=== PATIENT | female | born 1980 | race Caucasian/White ===

== ENCOUNTER 2016-06-22 23:59 | Emergency (ER) | payer OTHER, MEDICAID ==
[~2016-06-22] VITALS: Ht 170.2 cm; Wt 89.0 kg
[~2016-06-22 23:59] MED LIST: AMBI10TA PO; HYDR-3366 PO; HYDR-3533 PO; LIPI40TA PO; LISI40TA PO; OMEP40CA2 PO; TOPA25TA8 PO; XANA1TAB2 PO; ZOLO25TA PO
[2016-06-23 00:02] VITALS: BP 139/88; PULSE 105; RESP 16; TEMP 98; O2SAT 98
[2016-06-23] MEDS ORDERED: ZANT150T2 PO (00:21)
[2016-06-23] MEDS ORDERED: SODIUM CHLOR 0.9% 1000 ML INJ 1,000 ML IV SCH (01:05)
[2016-06-23] MEDS ORDERED: MORPHINE SULFATE 8 MG/ML INJ IV PUSH ONE (01:15)
[2016-06-23] MEDS ORDERED: SODIUM CHLORIDE 0.9% FLUSH 5 ML FLUSH IVF PRN (01:15)
[2016-06-23 01:39] LABS: BACTERIA, URINE RARE /hpf; BLOOD, URINE MOD (NEG); COMMENT (UR) CULTURE INDICATED; CULTURE IF INDICATED CULTURE INDICATED; GLUCOSE,URINE NEG (NEG); KETONE, URINE NEG (NEG); NITRITE,URINE NEG (NEG); PH, URINE 5.5 (5.0-8.5); SQUAMOUS EPITHELIAL CELL URINE 1 /hpf (0-5); URINE COLOR LIGHT-YELLOW (YELLW/STRAW)
[2016-06-23 01:45] LABS: AUTOMATED NEUTROPHIL # 13.6 TH/MM3 (1.8-7.7); BASOPHIL % 0.1 % (0.0-2.0); EOSINOPHIL # 0.1 TH/MM3 (0-0.4); EOSINOPHIL % 0.6 % (0.0-4.0); HEMATOCRIT 39.4 % (35.0-46.0); HEMO FLAGS DIFF FINAL; LYMPH % 19.8 % (9.0-44.0); LYMPHOCYTE # 3.6 TH/MM3 (1.0-4.8); MEAN CELL VOLUME 86.7 FL (80.0-100.0); MEAN CORPUSCULAR HEMOGLOBIN 29.6 PG (27.0-34.0); MEAN CORPUSCULAR HGB CONC 34.2 % (32.0-36.0); MONO % 5.1 % (0.0-8.0); NEUT % 74.4 % (16.0-70.0); PLATELET COUNT 246 TH/MM3 (150-450); RED BLOOD COUNT 4.54 MIL/MM3 (4.00-5.30); RED CELL DISTRIBUTION WIDTH 13.2 % (11.6-17.2); WHITE BLOOD COUNT 18.2 TH/MM3 (4.0-11.0)
[2016-06-23] MEDS ORDERED: MACR100C2 PO (01:55)
--- NOTE | 2016-06-23 01:56 | PD ---
HPI Chief Complaint: Flank/Kidney Pain Time Seen by Provider: 00:56 Travel History International Travel<30 days: No Contact w/Intl Traveler<30days: No Traveled to known affect area: No History of Present Illness HPI 35-year-old female arrives to the ER complaining of dysuria and suprapubic abdominal pain for the day. Onset gradual. Severity moderate. She reports diaphoresis however denies fever. She was vomiting earlier. Pain is worse with palpation. No vaginal bleeding or discharge. Last menstruation was 8 months prior. PFSH Past Medical History Anxiety: Yes Heart Rhythm Problems: No Cancer: Yes (CERVICAL ) High Cholesterol: Yes Congestive Heart Failure: No Cerebrovascular Accident: Yes Diabetes: No Diminished Hearing: No GERD: Yes Hypertension: Yes Kidney Stones: Yes (presently ) Medical other: Yes (displaced buckle handle right lateral meniscus tear, sx on 07/19/15) Psychiatric: Yes Immunizations Current: Yes Sickle Cell Disease: No Sleep Apnea: No Thyroid Disease: No Tetanus Vaccination: > 5 Years Influenza Vaccination: No ?: Not : 3 Para: 3 Miscarriage: 0 : 0 Tubal Ligation: Yes Past Surgical History AICD: No Arteriovenous Shunt: No Section: Yes (1x) Insulin Pump: No Joint Replacement: No Pacemaker: No Other Surgery: Yes ( AND TUBAL LIGATION IN 2001) Social History Alcohol Use: Yes (rare) Tobacco Use: Yes (1 PPD) Substance Use: No Allergies-Medications (Allergen,Severity, Reaction): Coded Allergies: Penicillin (Verified Allergy, Severe, HIVES, 06/23/16) Avelox (Verified Allergy, Mild, Hives, 06/23/16) Levaquin (Verified Allergy, Mild, Nausea/Vomiting, 06/23/16) Sumatriptan (Unverified Allergy, Mild, 06/23/16) Reported Meds & Prescriptions Reported Meds & Active Scripts Active Macrobid (Nitrofurantoin Monoh/Nitrofur Macro) 100 Mg Cap 100 Mg PO BID 5 Days Lortab (Hydrocodone-Acetaminophen) 5-325 Mg Tab 1 Tab PO Q6H PRN Reported Zantac (Ranitidine HCl) 150 Mg Tab 150 Mg PO HS Xanax (Alprazolam) 1 Mg Tab 1.5 Mg PO HS PRN Ambien (Zolpidem Tartrate) 10 Mg Tab 10 Mg PO HS PRN Topamax (Topiramate) 25 Mg Tab 75 Mg PO DAILY Lipitor (Atorvastatin Calcium) 40 Mg Tab 40 Mg PO DAILY Omeprazole 40 Mg Cap 40 Mg PO DAILY Lisinopril 40 Mg Tab 40 Mg PO DAILY Review of Systems Except as stated in HPI: all other systems reviewed are Neg Physical Exam Narrative GENERAL: 35-year-old female pleasant well-nourished well-developed acute distress SKIN: Warm and dry. HEAD: Atraumatic. Normocephalic. EYES: Pupils equal and round. No scleral icterus. No injection or drainage. ENT: No nasal bleeding or discharge. Mucous membranes pink and moist. NECK: Trachea midline. No JVD. CARDIOVASCULAR: Regular rate and rhythm. No murmur appreciated. RESPIRATORY: No accessory muscle use. Clear to auscultation. Breath sounds equal bilaterally. GASTROINTESTINAL: Soft. Tenderness to palpation. MUSCULOSKELETAL: No obvious deformities. No clubbing. No cyanosis. No edema. NEUROLOGICAL: Awake and alert. No obvious cranial nerve deficits. Motor grossly within normal limits. Normal speech. PSYCHIATRIC: Appropriate mood and affect; insight and judgment normal. Data Data Last Documented VS Vital Signs Date Time Temp Pulse Resp B/P Pulse Ox O2 Delivery O2 Flow Rate FiO2 06/23/16 00:02 98.0 105 16 139/88 98 Room Air VS reviewed Orders Complete Blood Count With Diff (06/23/16 01:05) Comprehensive Metabolic Panel (06/23/16 01:05) Urinalysis - C+S If Indicated (06/23/16 01:05) Iv Access Insert/Monitor (06/23/16 01:05) Ecg Monitoring (06/23/16 01:05) Oximetry (06/23/16 01:05) Sodium Chlor 0.9% 1000 Ml Inj (Ns 1000 M (06/23/16 01:05) Sodium Chloride 0.9% Flush (Ns Flush) (06/23/16 01:15) Morphine Inj (Morphine Inj) (06/23/16 01:15) Ed Urine Pregnancytest Poc (06/23/16 01:05) Urine Culture (06/23/16 01:09) Ceftriaxone Inj (Rocephin Inj) (06/23/16 02:00) Labs Laboratory Tests Test 06/23/16 01:09 White Blood Count 18.2 TH/MM3 Red Blood Count 4.54 MIL/MM3 Hemoglobin 13.5 GM/DL Hematocrit 39.4 % Mean Corpuscular Volume 86.7 FL Mean Corpuscular Hemoglobin 29.6 PG Mean Corpuscular Hemoglobin 34.2 % Concent Red Cell Distribution Width 13.2 % Platelet Count 246 TH/MM3 Mean Platelet Volume 8.1 FL Neutrophils (%) (Auto) 74.4 % Lymphocytes (%) (Auto) 19.8 % Monocytes (%) (Auto) 5.1 % Eosinophils (%) (Auto) 0.6 % Basophils (%) (Auto) 0.1 % Neutrophils # (Auto) 13.6 TH/MM3 Lymphocytes # (Auto) 3.6 TH/MM3 Monocytes # (Auto) 0.9 TH/MM3 Eosinophils # (Auto) 0.1 TH/MM3 Basophils # (Auto) 0.0 TH/MM3 CBC Comment DIFF FINAL Differential Comment Urine Color LIGHT-YELLOW Urine Turbidity HAZY Urine pH 5.5 Urine Specific Chancellor 1.004 Urine Protein NEG mg/dL Urine Glucose (UA) NEG mg/dL Urine Ketones NEG mg/dL Urine Occult Blood MOD Urine Nitrite NEG Urine Bilirubin NEG Urine Urobilinogen LESS THAN 2.0 MG/DL Urine Leukocyte Esterase LARGE Urine RBC 3 /hpf Urine WBC 43 /hpf Urine WBC Clumps FEW Urine Squamous Epithelial 1 /hpf Cells Urine Bacteria RARE /hpf Microscopic Urinalysis Comment CULTURE INDICATED Sodium Level 139 MEQ/L Potassium Level 3.8 MEQ/L Chloride Level 107 MEQ/L Carbon Dioxide Level 24.5 MEQ/L Anion Gap 8 MEQ/L Blood Urea Nitrogen 13 MG/DL Creatinine 0.87 MG/DL Estimat Glomerular Filtration 73 ML/MIN Rate Random Glucose 85 MG/DL Calcium Level 8.7 MG/DL Total Bilirubin 0.6 MG/DL Aspartate Amino Transf 12 U/L (AST/SGOT) Alanine Aminotransferase 22 U/L (ALT/SGPT) Alkaline Phosphatase 102 U/L Total Protein 7.0 GM/DL Albumin 3.8 GM/DL [facility] Medical Decision Making Medical Screen Exam Complete: Yes Emergency Medical Condition: Yes Medical Record Reviewed: Yes Differential Diagnosis Constipation, Gastritis, Acute Cholecystitis, Biliary Colic, Pancreatitis, MCQUEEN , Hepatitis, Bowel Obstruction, Cystitis, Mesenteric Ischemia, AAA, Appendicitis , Renal Stone/Hydronephrosis, GERD, perforated viscous Narrative Course Urinalysis reveals a urinary tract infection CBC & BMP Diagram 06/23/16 01:09 LFTs normal Assessment at 2:40 AM the Patient Is Feeling Much Better. She Has a Urinary Tract Infection. Rocephin Given Here. Macrobid Prescription for Home. Return Precautions Discussed. Follow-Up with PMD in 2 Days Diagnosis Primary Impression: Cystitis Referrals: Primary Care Physician 2 days Additional Instructions: You have a choice when it comes to health care, and we are glad that you chose [facility]. Hopefully, we have met your expectations on today's visit. You are welcome to return to [facility] at any time, as we are committed to meeting the health care needs of our community. Med/Other Pt SpecificInfo: Prescription(s) given Scripts Nitrofurantoin Monohydrate Macrocrystals (Macrobid)100 Mg Feq090 Mg PO BID 5 Days Ref 0 Prov:Jerzy Martinez MD 06/23/16 Disposition: 01 DISCHARGE HOME Condition: Stable Jerzy Martinez MD Jun 23, 2016 01:56
[2016-06-23 01:58] LABS: ANION GAP 8 MEQ/L (5-15); AST (GOT) 12 U/L (15-37); BICARBONATE 24.5 MEQ/L (21.0-32.0); BLOOD UREA NITROGEN 13 MG/DL (7-18); CHLORIDE 107 MEQ/L (98-107); GLOMERULAR FILTRATION RATE 73 ML/MIN (>89); POTASSIUM 3.8 MEQ/L (3.5-5.1); SODIUM (NA) 139 MEQ/L (136-145)
[2016-06-23 02:00] LABS: ALKALINE PHOSPHATASE 102 U/L (45-117); ALT (GPT) 22 U/L (10-53); TOTAL BILIRUBIN ADULT 0.6 MG/DL (0.2-1.0)
[2016-06-23] MEDS ORDERED: cefTRIAXone INJ 1,000 MG in SODIUM CHLORIDE 0.9% INJ 100 ML IV ONE (02:00)
[2016-06-23 03:14] VITALS: BP 103/60; PULSE 80; RESP 16; O2SAT 99
== END 2016-06-23 03:16 | disposition home or self-care (01) ==
LOC: NEPE 23:59
DX: N30.90 Cystitis, unspecified without hematuria (principal); F41.9 Anxiety disorder, unspecified; E78.00 Pure hypercholesterolemia, unspecified; Z86.73 Personal history of transient ischemic attack (TIA), and cerebral infarction without residual deficits; I10 Essential (primary) hypertension; Z87.442 Personal history of urinary calculi; F17.210 Nicotine dependence, cigarettes, uncomplicated; B96.20 Unspecified Escherichia coli [E. coli] as the cause of diseases classified elsewhere
CPT/HCPCS: 80053; 81001; 84703; 85025; 87077; 87086; 87186; 96361; 96365; 96375; 99284; J0696; J2270; J7030

== ENCOUNTER 2016-11-25 20:42 | Emergency (ER) | payer OTHER, MEDICAID ==
[~2016-11-25] VITALS: Ht 170.2 cm; Wt 88.0 kg
[~2016-11-25 20:42] MED LIST changes: -HYDR-3366 PO; +MACR100C2 PO; +ZANT150T2 PO; -ZOLO25TA PO
[2016-11-25 20:59] VITALS: BP 137/93; PULSE 77; RESP 20; TEMP 98.3; O2SAT 98
[2016-11-25] MEDS ORDERED: RESP: ALBUTEROL 2.5 MG/IPRATROPIUM 0.5 MG NEB (SCH) INH ONE (21:30)
[2016-11-25] MEDS ORDERED: SODIUM CHLORIDE 0.9% FLUSH 10 ML FLUSH IVF PRN (21:30)
--- NOTE | 2016-11-25 21:34 | PD ---
HPI Chief Complaint: Respiratory Symptoms Time Seen by Provider: 21:22 Travel History International Travel<30 days: No Contact w/Intl Traveler<30days: No Traveled to known affect area: No History of Present Illness HPI 36-year-old female here for evaluation of shortness of breath. The patient reports having shortness of breath for the last 3 days. She states it feels as though it is difficult for her to take a deep breath. She is denying any chest pain. She denies fevers or chills. No cough or hemoptysis. She works as a baggage and mail agent. She had orthopedic surgery of her right knee in July of this year for meniscal tear. She denies history of DVT or PE. No known history of CAD. She smokes between half a pack and a pack of cigarettes daily and has been doing so since she was 10 years old. PFSH Past Medical History Anxiety: Yes Heart Rhythm Problems: No Cancer: Yes (CERVICAL ) High Cholesterol: Yes Congestive Heart Failure: No Cerebrovascular Accident: Yes Diabetes: No Diminished Hearing: No GERD: Yes Hypertension: Yes Kidney Stones: Yes (presently ) Psychiatric: Yes Immunizations Current: Yes Sickle Cell Disease: No Sleep Apnea: No Thyroid Disease: No ?: Not : 3 Para: 3 Miscarriage: 0 : 0 Tubal Ligation: Yes Past Surgical History AICD: No Arteriovenous Shunt: No Section: Yes (1x) Insulin Pump: No Joint Replacement: No Pacemaker: No Other Surgery: Yes ( AND TUBAL LIGATION IN 2001) Social History Alcohol Use: Yes (rare) Tobacco Use: Yes (1 PPD) Substance Use: No Allergies-Medications (Allergen,Severity, Reaction): Coded Allergies: Penicillin (Verified Allergy, Severe, HIVES, 11/25/16) Avelox (Verified Allergy, Mild, Hives, 11/25/16) Levaquin (Verified Allergy, Mild, Nausea/Vomiting, 11/25/16) Sumatriptan (Unverified Allergy, Mild, 11/25/16) Reported Meds & Prescriptions Reported Meds & Active Scripts Active Reported Aspirin Low Dose (Aspirin) 81 Mg Chew 81 Mg CHEW DAILY Cetirizine (Cetirizine HCl) 10 Mg Tab 10 Mg PO DAILY Zantac (Ranitidine HCl) 150 Mg Tab 150 Mg PO HS Xanax (Alprazolam) 1 Mg Tab 1.5 Mg PO HS PRN Ambien (Zolpidem Tartrate) 10 Mg Tab 10 Mg PO HS PRN Topamax (Topiramate) 25 Mg Tab 75 Mg PO DAILY Lipitor (Atorvastatin Calcium) 40 Mg Tab 40 Mg PO DAILY Omeprazole 40 Mg Cap 40 Mg PO DAILY Review of Systems Except as stated in HPI: all other systems reviewed are Neg Physical Exam Narrative GENERAL: Well-developed, well-nourished, no apparent distress. SKIN: Focused skin assessment warm/dry. HEAD: Atraumatic. Normocephalic. EYES: Pupils equal and round. No scleral icterus. No injection or drainage. ENT: Mucous membranes pink and moist. NECK: Trachea midline. No JVD. CARDIOVASCULAR: Regular rate and rhythm. RESPIRATORY: No accessory muscle use. Clear to auscultation. Breath sounds equal bilaterally. Speaking full sentences. Occasionally takes a deep breath. No wheezes, rales, or rhonchi. GASTROINTESTINAL: Abdomen soft, non-tender, nondistended. Hepatic and splenic margins not palpable. MUSCULOSKELETAL: No obvious deformities. No clubbing. No cyanosis. No edema. Bilateral calves are supple, nontender. NEUROLOGICAL: Awake and alert. No obvious cranial nerve deficits. Motor grossly within normal limits. Normal speech. PSYCHIATRIC: Appropriate mood and affect; insight and judgment normal. Data Data Last Documented VS Vital Signs Date Time Temp Pulse Resp B/P Pulse Ox O2 Delivery O2 Flow Rate FiO2 11/25/16 22:26 80 20 133/84 98 Room Air 11/25/16 20:59 98.3 Orders Complete Blood Count With Diff (11/25/16 21:28) Comprehensive Metabolic Panel (11/25/16 21:28) B-Type Natriuretic Peptide (11/25/16 21:28) Act Partial Throm Time (Ptt) (11/25/16 21:28) Prothrombin Time / Inr (Pt) (11/25/16 21:28) Ckmb (Isoenzyme) Profile (11/25/16 21:28) Troponin I (11/25/16 21:28) Iv Access Insert/Monitor (11/25/16 21:28) Electrocardiogram (11/25/16 21:28) Ecg Monitoring (11/25/16 21:28) Oximetry (11/25/16 21:28) Oxygen Administration (11/25/16 21:28) Chest, Single Ap (11/25/16 21:28) Ct Pulmonary Angiogram (11/25/16 21:28) Sodium Chloride 0.9% Flush (Ns Flush) (11/25/16 21:30) Albuterol-Ipratropium Neb (Duoneb Neb) (11/25/16 21:30) Beta Hcg (Quant/Titer) (11/25/16 21:28) Iohexol 350 Inj (Omnipaque 350 Inj) (11/25/16 22:28) Labs Laboratory Tests Test 11/25/16 21:30 White Blood Count 8.8 TH/MM3 Red Blood Count 4.75 MIL/MM3 Hemoglobin 14.0 GM/DL Hematocrit 41.5 % Mean Corpuscular Volume 87.4 FL Mean Corpuscular Hemoglobin 29.4 PG Mean Corpuscular Hemoglobin 33.7 % Concent Red Cell Distribution Width 12.0 % Platelet Count 253 TH/MM3 Mean Platelet Volume 8.2 FL Neutrophils (%) (Auto) 57.4 % Lymphocytes (%) (Auto) 33.4 % Monocytes (%) (Auto) 8.0 % Eosinophils (%) (Auto) 0.6 % Basophils (%) (Auto) 0.6 % Neutrophils # (Auto) 5.0 TH/MM3 Lymphocytes # (Auto) 2.9 TH/MM3 Monocytes # (Auto) 0.7 TH/MM3 Eosinophils # (Auto) 0.1 TH/MM3 Basophils # (Auto) 0.1 TH/MM3 CBC Comment DIFF FINAL Differential Comment Prothrombin Time 10.1 SEC Prothromb Time International 0.9 RATIO Ratio Activated Partial 24.4 SEC Thromboplast Time Sodium Level 142 MEQ/L Potassium Level 3.4 MEQ/L Chloride Level 111 MEQ/L Carbon Dioxide Level 20.5 MEQ/L Anion Gap 11 MEQ/L Blood Urea Nitrogen 20 MG/DL Creatinine 0.86 MG/DL Estimat Glomerular Filtration 74 ML/MIN Rate Random Glucose 104 MG/DL Calcium Level 8.8 MG/DL Total Bilirubin 0.9 MG/DL Aspartate Amino Transf 47 U/L (AST/SGOT) Alanine Aminotransferase 90 U/L (ALT/SGPT) Alkaline Phosphatase 89 U/L Total Creatine Kinase 62 U/L Troponin I LESS THAN 0.02 NG/ML B-Type Natriuretic Peptide 6 PG/ML Total Protein 7.3 GM/DL Albumin 4.0 GM/DL Human Chorionic Gonadotropin, LESS THAN 1 Quant MIU/ML MDM Medical Decision Making Medical Screen Exam Complete: Yes Emergency Medical Condition: Yes Interpretation(s) EKG: Sinus, rate 72, normal axis, normal intervals, no acute ischemic abnormality. Differential Diagnosis ACS, pneumothorax, PE, pneumonia, bronchitis, anxiety Narrative Course Vital signs show heart rate 77, blood pressure 137/93, pulse ox 98% on room air , oral temp of 98.3F. CBC is unremarkable. CMP is remarkable for potassium 3.4, bicarbonate 20.5, AST 47, ALT 90, otherwise essentially unremarkable. BNP is 6. Cardiac enzymes are negative. Beta hCG is negative. Chest x-ray: No acute disease. CT pulmonary angiogram: Negative exam with no evidence of pulmonary embolism. Patient made aware of all findings including slight elevation in LFTs. She is on Topamax and Lipitor. She denies alcohol abuse as well as excessive Tylenol use. Otherwise patient is resting comfortably. She is in no acute distress. Her O2 saturation is 99% on room air. Lung sounds are clear and equal bilaterally. Patient describes sensation of not being able to take a deep breath. Again she has no chest pain. EKG shows no signs of ischemia. Cardiac enzymes are negative. At this point I believe the patient is stable for discharge home with outpatient follow-up with her primary care physician this week. She was counseled on smoking cessation. She was informed on when to return to the emergency department. She verbalizes understanding and agreement with plan. Diagnosis Primary Impression: Dyspnea Qualified Code: R06.00 - Dyspnea, unspecified type Additional Impression: Elevated liver enzymes Referrals: Primary Care Physician 3 days Additional Instructions: Follow-up with your primary care physician this week. Return to the emergency department for worsening symptoms or any other concerns. Disposition: 01 DISCHARGE HOME Condition: Stable Eddi David MD Nov 25, 2016 21:34
[2016-11-25 21:40] LABS: BASOPHIL # 0.1 TH/MM3 (0-0.2); BASOPHIL % 0.6 % (0.0-2.0); EOSINOPHIL # 0.1 TH/MM3 (0-0.4); EOSINOPHIL % 0.6 % (0.0-4.0); HEMATOCRIT 41.5 % (35.0-46.0); HEMO FLAGS DIFF FINAL; LYMPH % 33.4 % (9.0-44.0); LYMPHOCYTE # 2.9 TH/MM3 (1.0-4.8); MEAN CELL VOLUME 87.4 FL (80.0-100.0); MEAN CORPUSCULAR HEMOGLOBIN 29.4 PG (27.0-34.0); MEAN CORPUSCULAR HGB CONC 33.7 % (32.0-36.0); NEUT % 57.4 % (16.0-70.0); PLATELET COUNT 253 TH/MM3 (150-450); RED BLOOD COUNT 4.75 MIL/MM3 (4.00-5.30); WHITE BLOOD COUNT 8.8 TH/MM3 (4.0-11.0)
[2016-11-25] MEDS ORDERED: CETI10 PO (21:43)
[2016-11-25] MEDS ORDERED: ASPI81CH37 CHEW (21:43)
[2016-11-25 21:50] VITALS: O2SAT 98
[2016-11-25 21:52] LABS: CHLORIDE 111 MEQ/L (98-107); POTASSIUM 3.4 MEQ/L (3.5-5.1); SODIUM (NA) 142 MEQ/L (136-145)
[2016-11-25 21:57] LABS: ANION GAP 11 MEQ/L (5-15); APTT (PATIENT) 24.4 SEC (24.3-30.1); BICARBONATE 20.5 MEQ/L (21.0-32.0); INTERNATIONAL NORMALIZED RATIO 0.9 RATIO; PROTHROMBIN TIME - PATIENT 10.1 SEC (9.8-11.6)
[2016-11-25 21:58] LABS: BLOOD UREA NITROGEN 20 MG/DL (7-18)
[2016-11-25 22:00] LABS: ALT (GPT) 90 U/L (10-53)
[2016-11-25 22:01] LABS: AST (GOT) 47 U/L (15-37); GLOMERULAR FILTRATION RATE 74 ML/MIN (>89)
[2016-11-25 22:02] LABS: TOTAL BILIRUBIN ADULT 0.9 MG/DL (0.2-1.0)
[2016-11-25 22:03] LABS: ALKALINE PHOSPHATASE 89 U/L (45-117)
[2016-11-25 22:05] LABS: BETA HCG QUANT LESS THAN 1 MIU/ML (0-5)
[2016-11-25 22:06] LABS: CREATINE KINASE 62 U/L (26-192)
--- NOTE | 2016-11-25 22:21 | RADRPT ---
EXAM DATE/TIME: 11/25/2016 22:01 [facility] COMPARISON: No previous studies available for comparison. INDICATIONS : Shortness of breath. MEDICAL HISTORY : None. SURGICAL HISTORY : None. ENCOUNTER: Initial ACUITY: 1 day PAIN SCORE: 0/10 LOCATION: Bilateral chest FINDINGS: A single view of the chest demonstrates the lungs to be symmetrically aerated without evidence of mas s, infiltrate or effusion. The cardiomediastinal contours are unremarkable. Osseous structures are intact. CONCLUSION: No acute disease. Anibal Evangelista MD on November 25, 2016 at 22:19 Board Certified Radiologist. This report was verified electronically.
[2016-11-25 22:26] VITALS: BP 133/84; PULSE 80; RESP 20; O2SAT 98
[2016-11-25] MEDS ORDERED: IOHEXOL 350 MG/ML 10 ML VIAL (for RAD DIAG) IV ONE (22:28)
--- NOTE | 2016-11-25 22:38 | RADRPT ---
EXAM DATE/TIME: 11/25/2016 22:14 [facility] COMPARISON: No previous studies available for comparison. INDICATIONS : Short of breath x 3 days. IV CONTRAST: 75 cc Omnipaque 350 (iohexol) IV RADIATION DOSE: 18.94 CTDIvol (mGy) MEDICAL HISTORY : Cerebrovascular disease. Hypertension. SURGICAL HISTORY : Tubal ligation. ENCOUNTER: Initial ACUITY: 3 days PAIN SCALE: 0/10 LOCATION: chest TECHNIQUE: Volumetric scanning of the chest was performed using a pulmonary embolism protocol MIP images were re constructed. Using automated exposure control and adjustment of the mA and/or kV according to patien t size, radiation dose was kept as low as reasonably achievable to obtain optimal diagnostic quality images. DICOM format image data is available electronically for review and comparison. FINDINGS: PULMONARY ARTERIES: No filling defects are seen in the pulmonary arteries through the segmental level. LUNGS: There is no consolidation or pneumothorax . No concerning pulmonary nodule is visualized. PLEURAE: There is no pleural thickening or pleural effusion. MEDIASTINUM: There is good visualization of the great vessels of the middle mediastinum. No evidence of mediastin al or hilar adenopathy/mass. MUSCULOSKELETAL: Within normal limits for patient age. MISCELLANEOUS: The visualized upper abdominal organs demonstrate no acute abnormality. There is a retrocardiac hiata l hernia. CONCLUSION: Negative exam with no evidence of pulmonary embolism. Anibal Evangelista MD on November 25, 2016 at 22:33 Board Certified Radiologist. This report was verified electronically.
[2016-11-25 23:29] VITALS: BP 117/64
--- NOTE | 2016-11-26 17:19 | EKG ---
Date Performed: 11/25/2016 Time Performed: 21:43:32 PTAGE: 36 years EKG: Sinus rhythm NORMAL ECG PREVIOUS TRACING : 07/30/2015 01.09 Compared to prior tracing no significant change DOCTOR: Oz Vazquez Interpretating Date/Time 11/26/2016 17:17:42
== END 2016-11-25 23:33 | disposition home or self-care (01) ==
LOC: PHEFT 20:42 → PHED 23:33
DX: R06.00 Dyspnea, unspecified (principal); R74.8 Abnormal levels of other serum enzymes; F17.210 Nicotine dependence, cigarettes, uncomplicated; Z85.41 Personal history of malignant neoplasm of cervix uteri; E78.00 Pure hypercholesterolemia, unspecified; Z86.73 Personal history of transient ischemic attack (TIA), and cerebral infarction without residual deficits; I10 Essential (primary) hypertension
CPT/HCPCS: 71010; 71275; 80053; 82550; 83880; 84484; 84702; 85025; 85610; 85730; 93005; 94664; 99285; Q9967

== ENCOUNTER 2017-06-15 20:06 | Emergency (ER) | payer OTHER, MEDICAID ==
[2017-06-15] MEDS: ASPIRIN 81 MG CHEW TAB CHEW (20:34)
[2017-06-15] MEDS: NITROGLYCERIN 2% OINT 1 GM PACKET TOPICAL (20:34)
[2017-06-15] MEDS: NITROGLYCERIN 0.4 MG SL 25 TABS/BTL SL (20:34)
[2017-06-15 20:59] LABS: AUTOMATED NEUTROPHIL # 5.2 TH/MM3 (1.8-7.7); BASOPHIL % 0.4 % (0.0-2.0); EOSINOPHIL # 0.1 TH/MM3 (0-0.4); EOSINOPHIL % 0.6 % (0.0-4.0); HEMATOCRIT 41.9 % (35.0-46.0); HEMO FLAGS DIFF FINAL; HEMOGLOBIN 14.2 GM/DL (11.6-15.3); LYMPH % 40.5 % (9.0-44.0); LYMPHOCYTE # 4.2 TH/MM3 (1.0-4.8); MEAN CORPUSCULAR HEMOGLOBIN 29.2 PG (27.0-34.0); MEAN PLATELET VOLUME 7.8 FL (7.0-11.0); MONO % 7.9 % (0.0-8.0); MONOCYTE # 0.8 TH/MM3 (0-0.9); NEUT % 50.6 % (16.0-70.0); PLATELET COUNT 305 TH/MM3 (150-450); RED BLOOD COUNT 4.87 MIL/MM3 (4.00-5.30); RED CELL DISTRIBUTION WIDTH 12.9 % (11.6-17.2); WHITE BLOOD COUNT 10.4 TH/MM3 (4.0-11.0)
[2017-06-15 21:22] LABS: ALBUMIN 4.5 GM/DL (3.4-5.0); ANION GAP 7 MEQ/L (5-15); AST (GOT) 22 U/L (15-37); BICARBONATE 24.7 MEQ/L (21.0-32.0); BLOOD UREA NITROGEN 15 MG/DL (7-18); CHLORIDE 101 MEQ/L (98-107); CREATININE 0.94 MG/DL (0.50-1.00); GLOMERULAR FILTRATION RATE 67 ML/MIN (>89); GLUCOSE,RANDOM 77 MG/DL (74-106); LIPASE 89 U/L (73-393); POTASSIUM 3.3 MEQ/L (3.5-5.1); SODIUM (NA) 133 MEQ/L (136-145)
[2017-06-15 21:23] LABS: ALT (GPT) 29 U/L (10-53)
[2017-06-15 21:26] LABS: APTT (PATIENT) 24.7 SEC (24.3-30.1); PROTHROMBIN TIME - PATIENT 10.5 SEC (9.8-11.6)
[2017-06-15 21:27] LABS: ALKALINE PHOSPHATASE 118 U/L (45-117); CREATINE KINASE 131 U/L (26-192); TOTAL BILIRUBIN ADULT 1.1 MG/DL (0.2-1.0); TOTAL PROTEIN 7.9 GM/DL (6.4-8.2); TROPONIN I LESS THAN 0.02 NG/ML (0.02-0.05)
[2017-06-15 21:30] LABS: B-TYPE NATRIURETIC PEPTIDE 6 PG/ML (0-100)
[2017-06-15 21:37] LABS: D-DIMER 0.27 MG/L FEU (0.00-0.50)
[2017-06-15 21:39] LABS: CKMB 0.6 NG/ML (0.5-3.6)
[2017-06-15] MEDS: POTASSIUM CHLORIDE 20 MEQ CONTROLLED RELEASE TAB PO (22:38)
[2017-06-15 22:47] LABS: AMORPHOUS SEDIMENT, URINE RARE; BILIRUBIN, URINE NEG (NEG); BLOOD, URINE TRACE (NEG); COMMENT (UR) CULT NOT INDICATED; CULTURE IF INDICATED CULT NOT INDICATED; GLUCOSE,URINE NEG (NEG); KETONE, URINE NEG (NEG); MUCUS URINE FEW /lpf (OCC); NITRITE,URINE NEG (NEG); SQUAMOUS EPITHELIAL CELL URINE 6 /hpf (0-5); URINE COLOR YELLOW (YELLW/STRAW); URINE LEUKOCYTE ESTERASE SMALL (NEG)
[2017-06-15] MEDS ORDERED: SODIUM CHLORIDE 0.9% FLUSH 10 ML FLUSH IV FLUSH (23:15)
[2017-06-16] MEDS ORDERED: SODIUM CHLORIDE 0.9% FLUSH 10 ML FLUSH IV FLUSH (09:00)
== END 2017-06-15 23:53 | disposition left against medical advice (07) ==
LOC: NEPE 23:53 → NEDA 22:04
DX: R07.9 Chest pain, unspecified (principal); R06.02 Shortness of breath; I10 Essential (primary) hypertension; E78.00 Pure hypercholesterolemia, unspecified; K21.9 Gastro-esophageal reflux disease without esophagitis; E78.5 Hyperlipidemia, unspecified; F41.9 Anxiety disorder, unspecified; F17.200 Nicotine dependence, unspecified, uncomplicated; Z86.73 Personal history of transient ischemic attack (TIA), and cerebral infarction without residual deficits
CPT/HCPCS: 71045; 80053; 81001; 82550; 82552; 83690; 83735; 83880; 84484; 84703; 85025; 85379; 85610; 85730; 93005; 99285-25